=== PATIENT | female | born 1985 | race Caucasian/White ===

== ENCOUNTER 2024-01-24 12:26 | Emergency (ER) | payer OTHER, SELFPAY ==
--- NOTE | ~2024-01-24 | US_ITS ---
EXAMINATION: US OB <=14 wk fetus w TV DATE: 01/24/2024 16:20 INDICATION: Abdominal pain with positive test TECHNIQUE: Real-time pelvic ultrasound utilizing both a transvaginal and transabdominal probe was pe rformed. The interpreting radiologist was not present for the study. COMPARISON: None. FINDINGS: The uterus measures 9.2 x 4.7 x 5.6 cm. The endometrial complex measures 1.7 cm in thickness. There i s an intrauterine gestational sac with double decidual sign but without a discernible sac or po le. The mean sac diameter measures 3-4 mm, which correlates with an estimated gestational age of 5 we eks and 0 days. The right ovary measures 3.5 x 2.8 x 3.3 cm. 3.2 x 2.6 x 2.9 cm anechoic cyst in the right ovary. The left ovary measures 2.2 x 1.1 x 1.2 cm. And basilar flow identified at both ovaries on color Doppler . There is no free fluid in the pelvis. IMPRESSION: 1. Single intrauterine gestational sac with no discernible yolk sac or pole likely due to early stage of . 2. Gestational age by ultrasound based upon 3-4 mm mean sac diameter of 5 weeks 0 day(s) +/- 3 day(s ) with ultrasound estimated date of delivery (SUKUMAR) of 09/25/2024. Reviewed, dictated and finalized at location [facility]. IMPRESSION: 1. Single intrauterine gestational sac with no discernible yolk sac or po le likely due to early stage of . 2. Gestational age by ultrasound based upon 3-4 mm mean sac diameter of 5 week s 0 day(s) +/- 3 day(s) with ultrasound estimated date of delivery (SUKUMAR) of .
[2024-01-24 12:27] VITALS: BP 140/89; PULSE 90; RESP 18; TEMP 36.6; O2SAT 100
[2024-01-24 12:54] LABS: Basophils Absolute Auto 0.1 K/mm3 (0.0-0.1); Basophils Percent Auto 0.9 % (0.2-1.2); Eosinophils Absolute Auto 0.3 K/mm3 (0-0.3); Eosinophils Percent Auto 3.9 % (0-4.4); Hematocrit 37.8 % (37.0-47.0); Hemoglobin 12.6 g/dL (12.0-15.0); Immature Granulocyte Absolute 0.04 K/mm3 (0.00-0.031); Immature Granulocyte Percent A 0.6 % (0-0.5); Lymphocytes Absolute Auto 1.97 K/mm3 (0.9-3.2); Lymphocytes Percent Auto 28.2 % (18.3-44.2); Mean Corpuscular HGB Conc 33.3 g/dl (32-36); Mean Corpuscular Hemoglobin 29.2 pg (26-34); Mean Corpuscular Volume 87.5 fl (80-100); Mean Platelet Volume 9.3 fl (7.4-10.4); Monocytes Absolute Auto 0.5 K/mm3 (0.1-0.6); Monocytes Percent Auto 6.9 % (2.6-8.5); Neutrophils Absolute Auto 4.2 K/mm3 (1.3-6.7); Neutrophils Percent Auto 59.5 % (45.5-73.1); Platelet Count Result 236 k/mm3 (150-375); Red Blood Count 4.32 M/mm3 (4.2-5.4)
[2024-01-24 13:03] LABS: Alanine Aminotransferase 21 U/L (6-35); Albumin Level 4.5 g/dL (3.5-5.1); Alkaline Phosphatase 85 U/L (38-126); Anion Gap 7 mmol/L (4-12); Aspartate Amino Transferase 24 U/L (14-36); Bilirubin,Total 0.4 mg/dL (0.2-1.3); Blood Urea Nitrogen 16 mg/dL (7-17); Calcium 9.2 mg/dL (8.4-10.2); Carbon Dioxide 24 mmol/L (22-30); Chloride 111 mmol/L (98-107); Estimated CRCL calculation 96 ml/min; Estimated Glomerular Filt Rate > 60; Glucose 100 mg/dL (65-110); Lipase 97 U/L (23-300); Potassium 4.1 mmol/L (3.4-5.0); Sodium 142 mmol/L (137-145)
[2024-01-24 13:20] LABS: Appearance Urine Cloudy (Clear); Bacteria Urine 2+ /hpf; Bilirubin Urine Negative (Negative); Blood Urine 1+ (Negative); Color Urine Yellow (Yellow); Glucose Urine UA Negative (Negative); Ketones Urine Negative (Negative); Leukocyte Esterase Ur 1+ LEU/UL (Negative); Need Manual Microscopic Reviewed; Nitrate Urine Negative (Negative); Non Pathogenic Casts 0-2; Protein Urine Negative (Negative); RBC Urine 0-2 /hpf (0-2); Specific Grav Ur 1.022 (1.001-1.035); Squamous Epithelial Cell Urine Moderate /hpf (Few); Urobilinogen Urine 0.2 mg/dL (<2.0); WBC Urine 21-50 /hpf (0-3); pH Urine 7.5 (5.0-9.0)
[2024-01-24 13:22] LABS: Add Urine Microscopic? YES
--- NOTE | 2024-01-24 15:13 | ED.PREGNANCY ---
HPI - General Chief complaint: Abdominal Pain Stated complaint: 2 months and having pain Time Seen by Provider: 01/24/24 14:08 Source: patient and family () Limitations: no limitations History of Present Illness HPI Narrative: patient is a G 4 P 2000 female who reports being 2 mos and experiencing pain in her right abdomen that has worsened over the past few days. LMP 12/13/23. Has not yet established with OB for this ; has an appointment Sunday with [facility] though hoping to transition to [facility] since that's where she went for previous . She has trialed OTC acetaminophen once daily. No vaginal bleeding. Home test last week. currently in unidentified location. She has been nauseated. Taking vitamin. Related Data Home Medications Medication Instructions Recorded Confirmed hydroxyzine HCl 10 mg tablet 75 mg PO TID 07/28/21 01/30/22 venlafaxine 75 mg tablet 150 mg PO DAILY 07/28/21 01/30/22 Allergies Allergy/AdvReac Type Severity Reaction Status Date / Time No Known Allergies Allergy Mild Verified 01/27/24 10:48 [facility] Past Medical History Medical History Bipolar 1 disorder COVID-19 Social History Social History Years smoked: 9 Tobacco type: cigarettes Second hand tobacco smoke exposure: No Alcohol intake: never Substance use: former Substance use type: methamphetamine Exam Narrative: GENERAL: Well-appearing, well-nourished, and in no acute distress. HEAD: Normocephalic, atraumatic. EYES: Non injected, non icteric ENT: Nares clear, no rhinorrhea or epistaxis. NECK: Supple. CHEST: Speaking in complete sentences. No respiratory distress. HEART: Regular rate and rhythm. . ABDOMEN: Soft, nondistended. No TTP; no rigidity or guarding. EXTREMITIES: Normal range of motion. No edema. SKIN: Warm, dry, no rash. NEURO: No focal deficits. Alert and oriented x3. PSYCH: Normal mood and affect. Course Vital Signs Vital signs: Vital Signs Temperature 98 F 01/24/24 12:27 Pulse Rate 90 01/24/24 12:27 Respiratory Rate 18 01/24/24 12:27 Blood Pressure 140/89 01/24/24 12:27 Pulse Oximetry 100 01/24/24 12:27 Oxygen Delivery Room Air 01/24/24 12:27 Temperature 98 F 01/24/24 12:27 Pulse Rate 78 01/24/24 18:05 Respiratory Rate 16 01/24/24 18:05 Blood Pressure 121/75 01/24/24 18:05 Pulse Oximetry 100 01/24/24 18:05 Oxygen Delivery Room Air 01/24/24 12:27 MDM - OB/Uterine Contractions MDM Narrative Medical decision making narrative: This is a 38 yo patient at 6weeks/0days gestational age by reported LMP 12/13/23 presenting with right sided abdominal pain associated with nausea. Considered ectopic , spectrum of miscarriage/ (threatened, inevitable, incomplete, complete, septic) as well as causes of female-specific abdominal pain unrelated to (e.g., pelvic inflammatory disease with or without tubo-ovarian abscess, [id number], UTI, ovarian torsion, etc.). Also considered causes of abdominal pain that are not gender-specific (e.g., appendicitis, volvulus, small bowel obstruction, mesenteric adenitis, nephrolithiasis, acute cholecystitis/choledocholithiasis and other biliary pathology, etc.). I suspect this is musculoskeletal vs constipation in nature. Patient well-appearing with normal vital signs. Will give her 1g Tylenol and f/u on CBC and CMP. Her workup was WNL. No white count. No electrolyte abnormalities. No e/o renal injury. UA with concern for infection. Will treat bacteriuria during . US detects early that is intrauterine but without other identifiable features. On reassessment, the patient appears well, continues to tolerate PO, and reports feeling better after 1g Tylenol . Her vi
[2024-01-24] MEDS: ACETAMINOPHEN 500 MG TABLET 1000 MG PO (15:23)
[2024-01-24 16:10] LABS: Beta HCG Quantitative 521.35 mIU/ML
[2024-01-24] MEDS: CEPHALEXIN 500 MG CAPSULE PO (18:04)
[2024-01-24 18:05] VITALS: BP 121/75; PULSE 78; RESP 16; O2SAT 100
== END 2024-01-24 18:05 | disposition home or self-care (01) ==
PROVIDERS: Emergency Provider Student in an Organized Health Care Education/Training Program
DX: O26.891 Other specified pregnancy related conditions, first trimester (principal); R10.9 Unspecified abdominal pain; R82.71 Bacteriuria; O99.341 Other mental disorders complicating pregnancy, first trimester; F31.9 Bipolar disorder, unspecified; O99.331 Smoking (tobacco) complicating pregnancy, first trimester; F17.210 Nicotine dependence, cigarettes, uncomplicated; Z86.16 Personal history of COVID-19; Z3A.01 Less than 8 weeks gestation of pregnancy
CPT/HCPCS: 36415; 76801; 76817; 80053; 81001; 81025; 83690; 84702; 85025; 87086; 99284; A9270

== ENCOUNTER 2024-01-27 10:20 | Emergency (ER) | payer OTHER, SELFPAY ==
--- NOTE | ~2024-01-27 | US_ITS ---
US OB <=14 wk fetus w TV DATE: 01/27/2024 11:46 INDICATION: Vaginal bleeding, 5 weeks gestation TECHNIQUE: Real-time imaging via transabdominal and transvaginal approaches COMPARISON: January 24, 2024 obstetrical ultrasound FINDINGS: Central endometrial echo measures 12 mm proximally and anteroposterior maximal dimension. A n approximately 5.7 x 3.9 x 3.6 mm mildly irregular cystic area is noted within the endometrial cavit y, without evidence of yolk sac or pole. Right ovary measures 4 x 3.4 x 2.7 cm. 2.4 x 3 cm right ovarian cyst. Left ovary measures 2.9 x 1.9 x 2.0 cm. No pelvic mass lesion or abnormal pelvic free fluid collection is detected. IMPRESSION: Mildly irregular cystic area within the endometrial cavity without pole or yolk sac . 2.4 x 3 cm right ovarian cyst Reviewed, dictated and finalized at [facility]. Reviewed, dictated and finalized at location [facility]. IMPRESSION: Mildly irregular cystic area within the endometrial cavity without pole or yolk sac. 2.4 x 3 cm right ovarian cyst
--- NOTE | 2024-01-27 10:22 | ED.PREGNANCY ---
HPI - General Chief complaint: Vaginal Bleeding Stated complaint: , vag bleed Time Seen by Provider: 01/27/24 10:21 Source: patient and old records reviewed Mode of arrival: ambulatory Limitations: no limitations History of Present Illness HPI Narrative: Patient is a 38 y/o female who presents to the ED with c/o vaginal bleeding. Patient is a and currently approximately 5 weeks gestation, last normal menstrual period December 13. She reports she was seen in the ED here on 01/23 for constipation and lower abdominal pain. US at that time showing early , approx 5 weeks. Unable to visualize all important structures likely d/t early age. Patient developed light vaginal bleeding/spotting last night, which persisted into today. States it is light pink in color, noticed with wiping. Denies dark red bleeding, clots. Reports persistent lower abdominal pain and constipation. Last BM was today but small in nature. Denies rectal bleeding/melena. Patient is seeing [facility] for currently. Related Data Home Medications Medication Instructions Recorded Confirmed hydroxyzine HCl 10 mg tablet 75 mg PO TID 07/28/21 01/30/22 venlafaxine 75 mg tablet 150 mg PO DAILY 07/28/21 01/30/22 Allergies Allergy/AdvReac Type Severity Reaction Status Date / Time No Known Allergies Allergy Mild Verified 01/27/24 10:48 Review of Systems Review of Systems: CONSTITUTIONAL: Denies fever, chills, or sweats. GASTROINTESTINAL: See HPI. GENITOURINARY: See HPI. All systems reviewed & are unremarkable except as noted in HPI and below PMFSH Past Medical History Medical History Bipolar 1 disorder COVID-19 Social History Social History Years smoked: 9 Tobacco type: cigarettes Second hand tobacco smoke exposure: No Alcohol intake: never Substance use: former Substance use type: methamphetamine Exam Narrative: GENERAL: Well appearing, well-nourished, non-toxic, in no acute distress. HEAD: Normocephalic, atraumatic. RESPIRATORY: Airway patent, respirations nonlabored. Clear to auscultation bilaterally, no rales, rhonchi, wheezing. CARDIOVASCULAR: Regular rate and rhythm without murmurs, rubs, or gallops. ABDOMINAL: Soft, no significant tenderness throughout abdomen, nondistended. Normoactive BS. PELVIC: Normal external genitalia. Mild amount of dark red fresh bleeding noted in vaginal vault. Cervix appears normal, os appears open with a small amount of tissue like material coming from os. MUSCULOSKELETAL: Moves all extremities. No gross deformities. SKIN: Warm, dry, normal color. NEURO: A&O X3. Speech clear. Cranial nerves II-XII grossly intact. Steady gait. No ataxic movements. PSYCHIATRIC: Appropriate mood and affect. Normal interaction. Course Vital Signs Vital signs: Vital Signs Temperature 97.6 F 01/27/24 10:26 Pulse Rate 105 H 01/27/24 10:26 Respiratory Rate 16 01/27/24 10:26 Blood Pressure 115/83 01/27/24 10:26 Pulse Oximetry 99 01/27/24 10:26 Temperature 97.9 F 01/27/24 10:33 Pulse Rate 79 01/27/24 13:05 Respiratory Rate 18 01/27/24 13:05 Blood Pressure 112/80 01/27/24 13:05 Pulse Oximetry 100 01/27/24 13:05 Oxygen Delivery Room Air 01/27/24 10:33 MDM - OB/Uterine Contractions MDM Narrative Medical decision making narrative: Patient presented to ED currently approximately 5 weeks gestation, , complaining of 2 days of light vaginal spotting. Ultrasound from 01/23 showing early gestational sac, 5 weeks. No discernible yolk sac or pole at that time. Beta quant today decreased down to 338 today, decreased from 521 on 01/23, consistent with spontaneous miscarriage. UA consistent with infection, culture from 01/23 was negative, though increased number of WBC today. Patient was started on keflex on
[2024-01-27 10:26] VITALS: BP 115/83; PULSE 105; RESP 16; TEMP 36.4; O2SAT 99
[2024-01-27 10:33] VITALS: BP 115/83; PULSE 100; RESP 18; TEMP 36.6; O2SAT 100
[2024-01-27] MEDS: ACETAMINOPHEN 500 MG TABLET 1000 MG PO (10:52)
[2024-01-27 10:53] LABS: Basophils Absolute Auto 0.1 K/mm3 (0.0-0.1); Basophils Percent Auto 0.5 % (0.2-1.2); Eosinophils Absolute Auto 0.3 K/mm3 (0-0.3); Eosinophils Percent Auto 2.7 % (0-4.4); Hematocrit 37.9 % (37.0-47.0); Hemoglobin 12.7 g/dL (12.0-15.0); Immature Granulocyte Absolute 0.05 K/mm3 (0.00-0.031); Immature Granulocyte Percent A 0.5 % (0-0.5); Lymphocytes Absolute Auto 1.78 K/mm3 (0.9-3.2); Lymphocytes Percent Auto 16.7 % (18.3-44.2); Mean Corpuscular HGB Conc 33.5 g/dl (32-36); Mean Corpuscular Hemoglobin 28.8 pg (26-34); Mean Corpuscular Volume 85.9 fl (80-100); Mean Platelet Volume 8.8 fl (7.4-10.4); Monocytes Absolute Auto 0.6 K/mm3 (0.1-0.6); Monocytes Percent Auto 5.3 % (2.6-8.5); Neutrophils Absolute Auto 7.9 K/mm3 (1.3-6.7); Neutrophils Percent Auto 74.3 % (45.5-73.1); Platelet Count Result 219 k/mm3 (150-375); Red Blood Count 4.41 M/mm3 (4.2-5.4); Red Cell Distribution Width 13.3 % (11.5-14.5); White Blood Count 10.7 K/mm3 (4.5-10.0)
[2024-01-27] MEDS: SODIUM CHLORIDE 0.9% IV 1,000 ML 999 ML IV CONT (10:53)
[2024-01-27 10:58] LABS: Bacteria Urine 2+ /hpf; Need Manual Microscopic Reviewed; Non Pathogenic Casts 0-2; RBC Urine >100 /hpf (0-2); Squamous Epithelial Cell Urine Many /hpf (Few); WBC Urine >100 /hpf (0-3)
[2024-01-27 10:59] LABS: Appearance Urine Turbid (Clear); Bilirubin Urine Negative (Negative); Blood Urine 3+ (Negative); Color Urine Red (Yellow); Glucose Urine UA Negative (Negative); Ketones Urine Negative (Negative); Leukocyte Esterase Ur 3+ LEU/UL (Negative); Nitrate Urine Negative (Negative); Protein Urine 2+ mg/dL (Negative); Specific Grav Ur 1.021 (1.001-1.035); Urobilinogen Urine 0.2 mg/dL (<2.0)
[2024-01-27 11:00] LABS: Add Urine Microscopic? YES
[2024-01-27 11:04] LABS: Alanine Aminotransferase 24 U/L (6-35); Albumin Level 4.4 g/dL (3.5-5.1); Alkaline Phosphatase 92 U/L (38-126); Anion Gap 4 mmol/L (4-12); Aspartate Amino Transferase 29 U/L (14-36); Bilirubin,Total 0.5 mg/dL (0.2-1.3); Blood Urea Nitrogen 13 mg/dL (7-17); Calcium 8.8 mg/dL (8.4-10.2); Carbon Dioxide 26 mmol/L (22-30); Chloride 108 mmol/L (98-107); Estimated CRCL calculation 97 ml/min; Estimated Glomerular Filt Rate > 60; Glucose 103 mg/dL (65-110); Potassium 3.7 mmol/L (3.4-5.0); Sodium 138 mmol/L (137-145)
[2024-01-27] MEDS: CEPHALEXIN 500 MG CAPSULE PO (11:47)
[2024-01-27] MEDS: polyethylene glycoL 3350 17 GM POWD.PACK PO (11:48)
[2024-01-27 13:05] VITALS: BP 112/80; PULSE 79; RESP 18; O2SAT 100
== END 2024-01-27 13:07 | disposition home or self-care (01) ==
PROVIDERS: Emergency Provider Physician Assistant
DX: O03.9 Complete or unspecified spontaneous abortion without complication (principal); F31.9 Bipolar disorder, unspecified; Z86.16 Personal history of COVID-19; N83.201 Unspecified ovarian cyst, right side
CPT/HCPCS: 36415; 76801; 76817; 80053; 81001; 84702; 85025; 85461; 86850; 86900; 86901; 87086; 87088; 88305; 96360; 99284; A9270; J7030

== ENCOUNTER 2024-02-22 12:40 | Emergency (ER) | payer OTHER, SELFPAY ==
[2024-02-22 12:47] VITALS: BP 113/62; PULSE 103; RESP 16; TEMP 36.5; O2SAT 100
--- NOTE | 2024-02-22 13:01 | ED.FEMALEGU ---
HPI - Female Genitourinary General Chief complaint: Vaginal Bleeding Stated complaint: vaginal bleeding after miscarriage 4 weeks ago Time Seen by Provider: 02/22/24 12:55 Source: patient and family (partner) Mode of arrival: ambulatory Limitations: no limitations History of Present Illness HPI Narrative: This is a 39-year-old 012 female who presents with vaginal bleeding. Patient's last menstrual period was 12/13/2023. She was seen in the emergency department with diagnosis of last month which showed intrauterine but early in at 5 weeks 0 days and thus without gestational sac or pole. She presented a few days later was found to be miscarrying. Patient states that the vaginal bleeding resolved but throughout the entire month she has continued to experience low pelvic pain and cramping. She saw an ObGyn provider (name unknown) At [facility] in [place]. patient complains of urinary frequency urgency and dysuria. She does not know if there is a component of hematuria as well given the vaginal bleeding. She states that she feels like she is incompletely you voiding frequently. She has a history of frequent urinary tract infection of which have been complicated however she feels that she is otherwise refractory to antibiotic treatment. Mother has a longstanding history of chronic urinary tract infections as well. She has been taking acetaminophen for pain relief, last dose yesterday. Related Data Home Medications Medication Instructions Recorded Confirmed hydroxyzine HCl 10 mg tablet 75 mg PO TID 07/28/21 01/30/22 venlafaxine 75 mg tablet 150 mg PO DAILY 07/28/21 01/30/22 Allergies Allergy/AdvReac Type Severity Reaction Status Date / Time No Known Allergies Allergy Mild Verified 02/22/24 13:26 [facility] Past Medical History Medical History (Updated 02/23/24 @ 11:08 by Iesha Terry MD) Bipolar 1 disorder COVID-19 History of genital warts Social History Social History Years smoked: 9 Tobacco type: cigarettes Second hand tobacco smoke exposure: No Alcohol intake: never Substance use: former Substance use type: methamphetamine Exam Narrative: GENERAL: Well-appearing, well-nourished, and in no acute distress. HEAD: Normocephalic, atraumatic. EYES: Non injected, non icteric. Normal conjunctiva ENT: Nares clear, no rhinorrhea or epistaxis. NECK: Supple. CHEST: Speaking in full sentences. No respiratory distress. HEART: Regular rate and rhythm. . ABDOMEN: Soft, nondistended. No tenderness or rigidity. Mild suprapubic tenderness. : Pelvic exam performed with serena Espinosa present and assisting as director motion picture. 1-2mm abrasion 1cm from labia majora. No evidence of tears or foreign body. NOrmal vaginal mucous. Dry blood at the entrance of vaginal canal with some blood pooled in posterior aspect of vaginal canal. Normal bimanual exam without adnexal or cervical motion tenderness. EXTREMITIES: Normal range of motion. No edema. SKIN: Warm, dry, no rash. NEURO: No focal deficits. Alert and oriented x3. PSYCH: Normal mood and affect. Course Vital Signs Vital signs: Vital Signs Temperature 97.7 F 02/22/24 12:47 Pulse Rate 103 H 02/22/24 12:47 Respiratory Rate 16 02/22/24 12:47 Blood Pressure 113/62 02/22/24 12:47 Pulse Oximetry 100 02/22/24 12:47 Oxygen Delivery Room Air 02/22/24 12:47 Temperature 97.7 F 02/22/24 12:47 Pulse Rate 98 02/22/24 16:01 Respiratory Rate 16 02/22/24 16:01 Blood Pressure 120/60 02/22/24 16:01 Pulse Oximetry 100 02/22/24 16:01 Oxygen Delivery Room Air 02/22/24 12:47 MDM - Female Genitourinary MDM Narrative Medical decision making narrative: Initial vital signs show mild tachycardia for which small bolus IV fluids ordered. After obtaining the patient's history a spot urine was obtained which was negative for
[2024-02-22] MEDS: ACETAMINOPHEN 500 MG TABLET 1000 MG PO (13:21)
[2024-02-22] MEDS: SODIUM CHLORIDE 0.9% IV 500 ML 999 ML IV CONT (13:21)
[2024-02-22 13:29] LABS: Basophils Percent Auto 0.6 % (0.2-1.2); Eosinophils Absolute Auto 0.2 K/mm3 (0-0.3); Eosinophils Percent Auto 3.7 % (0-4.4); Hematocrit 39.4 % (37.0-47.0); Hemoglobin 12.9 g/dL (12.0-15.0); Immature Granulocyte Absolute 0.02 K/mm3 (0.00-0.031); Immature Granulocyte Percent A 0.3 % (0-0.5); Lymphocytes Percent Auto 23.8 % (18.3-44.2); Mean Corpuscular HGB Conc 32.7 g/dl (32-36); Mean Corpuscular Hemoglobin 29.1 pg (26-34); Mean Corpuscular Volume 88.7 fl (80-100); Monocytes Absolute Auto 0.4 K/mm3 (0.1-0.6); Monocytes Percent Auto 6.4 % (2.6-8.5); Neutrophils Absolute Auto 4.1 K/mm3 (1.3-6.7); Neutrophils Percent Auto 65.2 % (45.5-73.1); Platelet Count Result 246 k/mm3 (150-375); Red Blood Count 4.44 M/mm3 (4.2-5.4); Red Cell Distribution Width 12.8 % (11.5-14.5); White Blood Count 6.3 K/mm3 (4.5-10.0)
[2024-02-22 13:31] LABS: Bacteria Urine Rare /hpf; Non Pathogenic Casts 0-2; RBC Urine >100 /hpf (0-2); Squamous Epithelial Cell Urine Few /hpf (Few); WBC Urine 21-50 /hpf (0-3)
[2024-02-22 13:35] LABS: Add Urine Microscopic? YES; Appearance Urine Turbid (Clear); Bilirubin Urine 1+ (Negative); Blood Urine 2+ (Negative); Color Urine Red (Yellow); Glucose Urine UA Negative (Negative); Ketones Urine Negative (Negative); Leukocyte Esterase Ur 2+ LEU/UL (Negative); Nitrate Urine Negative (Negative); Protein Urine 2+ mg/dL (Negative); Specific Grav Ur 1.022 (1.001-1.035); Urobilinogen Urine 0.2 mg/dL (<2.0)
[2024-02-22 13:48] LABS: Alanine Aminotransferase 27 U/L (6-35); Albumin Level 4.6 g/dL (3.5-5.1); Alkaline Phosphatase 102 U/L (38-126); Anion Gap 7 mmol/L (4-12); Aspartate Amino Transferase 26 U/L (14-36); Bilirubin,Total 0.4 mg/dL (0.2-1.3); Blood Urea Nitrogen 16 mg/dL (7-17); Carbon Dioxide 24 mmol/L (22-30); Chloride 108 mmol/L (98-107); Estimated CRCL calculation 99 ml/min; Estimated Glomerular Filt Rate > 60; Glucose 102 mg/dL (65-110); Potassium 4.1 mmol/L (3.4-5.0); Sodium 139 mmol/L (137-145)
[2024-02-22 14:02] LABS: Beta HCG Quantitative < 2.39 mIU/ML
[2024-02-22 15:12] LABS: Trichomonas Vag PCR NOT DETECTED (NOT DETECTE)
[2024-02-22 15:36] LABS: Chlamydia trachomatis NOT DETECTED (NOT DETECTE); Neisseria gonorrhoeae PCR NOT DETECTED (NOT DETECTE)
[2024-02-22 16:01] VITALS: BP 120/60; PULSE 98; RESP 16; O2SAT 100
== END 2024-02-22 16:02 | disposition home or self-care (01) ==
PROVIDERS: Emergency Provider Student in an Organized Health Care Education/Training Program
DX: N39.0 Urinary tract infection, site not specified (principal); N93.9 Abnormal uterine and vaginal bleeding, unspecified; F31.9 Bipolar disorder, unspecified
CPT/HCPCS: 36415; 80053; 81001; 81025; 84702; 85025; 86850; 86900; 86901; 87086; 87491; 87591; 87661; 96365; 99284; A9270; J0696; J7040

== ENCOUNTER 2024-04-24 17:45 | Emergency (ER) | payer OTHER, SELFPAY ==
[2024-04-24 17:54] VITALS: BP 136/82; PULSE 82; RESP 20; TEMP 36.3; O2SAT 100
--- NOTE | 2024-04-24 18:02 | ED.FEMALEGU ---
HPI - Female Genitourinary General Chief complaint: Urogenital-Female Stated complaint: Urinary Problem History of Present Illness [facility] Narrative: Patient is a 39-year-old female, past medical history significant for anxiety and asthma as well as recurrent UTI, presents to [facility] with dysuria, increased frequency and some stress incontinence for the past couple of days. She denies associated fevers or chills. She has no abnormal vaginal discharge she denies STI concerns. She has had irregular menstrual cycles since her miscarriage in December of 2023. She is on oral contraceptive therapy present. She denies any additional associated symptoms or modifying factors. Related Data Home Medications Medication Instructions Recorded Confirmed hydroxyzine HCl 10 mg tablet 75 mg PO TID 07/28/21 01/30/22 venlafaxine 75 mg tablet 150 mg PO DAILY 07/28/21 01/30/22 Allergies Allergy/AdvReac Type Severity Reaction Status Date / Time No Known Allergies Allergy Mild Verified 02/22/24 13:26 Review of Systems Genitourinary: Comments: refer to [facility] Past Medical History Medical History Bipolar 1 disorder COVID-19 History of genital warts Social History Social History Years smoked: 9 Tobacco type: cigarettes Second hand tobacco smoke exposure: No Alcohol intake: never Substance use: former Substance use type: methamphetamine Exam Const: General: healthy appearing, no acute distress and alert Nutritional Appearance: well nourished Orientation/consciousness: patient oriented x3 Limitations: no limitations HENMT: Head: normal to inspection Ears: external ears normal and TM's normal bilaterally Face and sinus: normal facial exam Mouth: Yes Normal oral and palatal mucosa present Teeth and gingiva: dentition normal Throat: posterior oropharynx normal and uvula midline Eyes: Conjunctivae: conjunctivae normal Pupils: Equal, round and reactive pupils present EOM: EOMs intact bilaterally Direct Ophthalmoscopy: no photophobia Neck: Neck: normal visual inspection, no lymphadenopathy and no meningeal signs Chest: Chest palpation & inspection: normal inspection of the chest Resp: Effort & Inspection: normal respiratory effort Auscultation: clear to auscultation bilaterally Cardio: Rate: regular rate Rhythm: regular rhythm GI: GI Palp: Yes Soft to palpation, No Tenderness to palpation present (GI), No Guarding due to palpation present (GI), No Rigid due to palpation, No Hernia present, No Palpable mass present and No Rebound tenderness present : Other: no CVA tenderness to percussion bilaterally Skin: General skin exam: normal color Rashes: no rashes Wounds: no wounds Neuro: General: patient oriented x3, moves all extremities, no meningeal signs, no focal motor deficits and CN's II-XI intact bilaterally Speech: normal speech Gait exam (Neuro): Normal gait present Extrem: General: normal to inspection and no clubbing, cyanosis or edema Course Course Emergency Course: urinalysis shows 1+ leuks, negative nitrites, negative ketones, negative glucose, UPT is negative as well, plan to treat with oral antibiotics, previous urine cultures are reviewed from earlier this year, no growth or normal urogenital samara was shown. No sensitivity report for review. Level of Care: Express Care Visit ([id number]) Vital Signs Vital signs: Vital Signs Temperature 36.3 C L 04/24/24 17:54 Pulse Rate 82 04/24/24 17:54 Respiratory Rate 20 04/24/24 17:54 Blood Pressure 136/82 04/24/24 17:54 Pulse Oximetry 100 04/24/24 17:54 Oxygen Delivery Room Air 04/24/24 17:54 Temperature 36.3 C L 04/24/24 17:54 Pulse Rate 82 04/24/24 17:54 Respiratory Rate 20 04/24/24 17:54 Blood Pressure 136/82 04/24/24 17:54 Pulse Oximetry 100 04/24/24 17:54 Oxygen Delivery Ro
[2024-04-24 18:04] LABS: BEDSIDEPREGUCG Negative; EDUABILI Negative; EDUABLOOD 2+; EDUACOLOR1 Light/Pale; EDUAGLUCOSE Negative; EDUAKETONE Negative; EDUALEUKO 1+; EDUANITRATE Negative; EDUAPH 7.5; EDUAPROTEIN 1+; EDUASPGRAVITY 1.015; EDUAUROBILI 0.2
[2024-04-30 12:21] LABS: EDUAAPPEAR CLEAR
== END 2024-04-24 18:15 | disposition home or self-care (01) ==
PROVIDERS: Emergency Provider Nurse Practitioner Family
DX: N30.01 Acute cystitis with hematuria (principal); B96.20 Unspecified Escherichia coli [E. coli] as the cause of diseases classified elsewhere; F41.9 Anxiety disorder, unspecified; J45.909 Unspecified asthma, uncomplicated; Z86.16 Personal history of COVID-19
CPT/HCPCS: 81003; 81025; 87077; 87086; 87088; 87186; 99213; G0463